=== PATIENT | male | born 1945 | race Caucasian/White ===

== ENCOUNTER 2017-10-10 15:56 | Emergency (ER) | payer MEDICARE, MEDICAID ==
[~2017-10-10] VITALS: Ht 185.4 cm; Wt 136.0 kg
[~2017-10-10 15:56] MED LIST: AMLO10 PO; ASPI-99 PO; ATOR40TA49 PO; CLIN150 PO; EPIP0.3I IM; FENT25DI TD; FISH1000 PO; ISOS10TA PO; LANTUS2P SC; LEVEMIR SC; LISI10TA PO; METF1000 PO; MONT10TA2 PO; OMEP20TA PO; POTA-267 OR; PREG100 PO; ROPI5TAB PO; SINE25100 PO; SPIRCAP INH; VENTAER INH; [UNRECOGNIZED DRUG - CODE] PO
[2017-10-10 16:02] VITALS: BP 129/69; PULSE 73; RESP 16; TEMP 97.4; O2SAT 97
[2017-10-10] MEDS ORDERED: FURO1TAB60 PO (16:25)
[2017-10-10] MEDS ORDERED: PREG300 PO (16:25)
[2017-10-10] MEDS ORDERED: CARB25TA16 PO (16:25)
[2017-10-10] MEDS ORDERED: NYST100084 TOPICAL (16:25)
[2017-10-10] MEDS ORDERED: XARE20TA PO (16:25)
[2017-10-10] MEDS ORDERED: CARB25TA12 PO (16:25)
[2017-10-10] MEDS ORDERED: HYDR-3583 PO (16:25)
[2017-10-10] MEDS ORDERED: ROPI2TAB PO (16:25)
[2017-10-10] MEDS ORDERED: ATOR40TA16 PO (16:25)
[2017-10-10] MEDS ORDERED: DIPH25CA PO (16:25)
[2017-10-10] MEDS ORDERED: GABA400C5 PO (16:25)
[2017-10-10] MEDS ORDERED: CARB10TA2 PO (16:25)
[2017-10-10] MEDS ORDERED: TIOT1AER INH (16:25)
[2017-10-10] MEDS ORDERED: POTA10TA15 PO (16:25)
[2017-10-10] MEDS ORDERED: OMEG100046 PO (16:25)
[2017-10-10] MEDS ORDERED: OMEP40CA2 PO (16:25)
[2017-10-10] MEDS ORDERED: LISI20TA3 PO (16:25)
[2017-10-10] MEDS ORDERED: FLAX10002 PO (16:25)
[2017-10-10] MEDS ORDERED: VITA500T83 PO (16:25)
--- NOTE | 2017-10-10 16:36 | PD ---
HPI Chief Complaint: Wound/Suture/Staple Re-Check Time Seen by Provider: 16:24 Travel History International Travel<30 days: No Contact w/Intl Traveler<30days: No Traveled to known affect area: No History of Present Illness HPI 72-year-old male with bilateral axillary cyst removals by Dr. Del Valle at [facility] on 10/04/17, on Xarelto, here for evaluation of pain at the incision site on his right axilla with bleeding. The patient reports that he rates his arm too high today, causing pain and bleeding. He believes he may have ripped one of the sutures out. He was seen by the surgeons nurse practitioner yesterday and was started on Bactrim. He denies fevers. Pain is moderate, constant, worse with movements. PFSH Past Medical History Asthma: Yes High Cholesterol: Yes COPD: Yes Coronary Artery Disease: Yes Diabetes: Yes Patient Takes Glucophage: No Diminished Hearing: No Gastrointestinal Disorders: Yes (GASTROPERISIS) GERD: Yes Hypertension: Yes Musculoskeletal: Yes (CHRONIC LEG PAIN) Pneumonia: Yes Past Surgical History Appendectomy: Yes Cholecystectomy: Yes Other Surgery: Yes (HERNIA, CYSTS REMOVED BILATERAL AXILLA) Social History Alcohol Use: No Tobacco Use: Yes Substance Use: No Allergies-Medications (Allergen,Severity, Reaction): Coded Allergies: bee venom protein (honey bee) (Unverified Allergy, Severe, Anaphylaxis, 10/10/17) doxycycline (Unverified Allergy, Severe, 10/10/17) erythromycin base (Unverified Allergy, Severe, HIVES, 10/10/17) levofloxacin (Unverified Allergy, Severe, Itching, 10/10/17) penicillin G (Unverified Allergy, Severe, Anaphylaxis, 10/10/17) pregabalin (Unverified Allergy, Unknown, Anaphylaxis, 10/10/17) *MDRO Multi-Drug Resistant Organism (Unverified Adverse Reaction, Unknown , 10/10/17) MRSA - 06/27/14 (wound) Uncoded Allergies: DOXY (Allergy, Severe, Itching, 01/17/12) Reported Meds & Prescriptions Reported Meds & Active Scripts Active Reported Diphenhydramine (Diphenhydramine HCl) 25 Mg Cap 25 Mg PO Q8HR PRN Lyrica (Pregabalin) 300 Mg Cap 300 Mg PO TID Hydrocodone-Acetaminophen 10-325 mg Tab 1 Tab PO Q6H PRN Atorvastatin (Atorvastatin Calcium) 40 Mg Tab 40 Mg PO HS Vitamin C ER (Ascorbic Acid) 500 Mg Jodee 500 Mg PO DAILY Fish Oil 1,000 mg Softgel ([place]-3/Dha/Epa/Fish Oil) 1,000 Mg (120 Mg-180 Mg) Capsule 1 Tab PO DAILY Omeprazole 40 Mg Cap 40 Mg PO BID Lasix (Furosemide) 40 Mg Tab 40 Mg PO BID Lisinopril-Hctz 20-25 Mg Tab 1 Tab PO DAILY Xarelto (Rivaroxaban) 20 Mg Tab 20 Mg PO DAILY Flax Seed Oil 1000 mg (Flaxseed (Linseed)) 1,000 Mg Cap 1 Cap PO DAILY Ropinirole 2 Mg Tab 3 Tab PO HS Carbidopa-Levodopa 10-100 Mg Tab 1 Tab PO Q8HR Carbidopa-Levodopa ER 25-100 Mg Tab 1 Tab PO DAILY Carbidopa-Levodopa 25-250 Mg Tab 1 Tab PO Q8HR Potassium Chloride Microencaps 10 Meq Tab 10 Meq PO QID Gabapentin 400 Mg Cap 400 Cap PO QID Stiolto Respimat Inh (Tiotropium-Olodaterol Inh) 2.5-2.5 Mcg/Act Aero 2 Puff INH BID Nystatin Topical 100,000 unit/gm Oint 1 Applic TOPICAL Q12HR Review of Systems Except as stated in HPI: all other systems reviewed are Neg Physical Exam Narrative GENERAL: Well-developed, well-nourished, comfortable, no apparent distress. SKIN: Right axillary surgical incision with [address] with no active bleeding, no purulence, mild surrounding ecchymosis and erythema, no crepitus. Left axillary surgical incision with [address] with a small amount of purulence, no surrounding warmth or erythema, no induration, no crepitus. CARDIOVASCULAR: Regular rate and rhythm. RESPIRATORY: No accessory muscle use. NEUROLOGICAL: Awake and alert. No obvious cranial nerve deficits. Motor grossly within normal limits. Normal speech. PSYCHIATRIC: Appropriate mood and affect; insight and judgment normal. Data Data Last Documented VS Vital Signs Date Time Temp Pulse Resp B/P (MAP) Pulse Ox O2 Delivery O2 Flow Rate FiO2 10/10/17 16:02 97.4 73 16 129/69 (89) 97 MDM Medical Decision Making Medical Screen Exam Complete: Yes Emergency Medical Condition: Yes Differential Diagnosis Wound dehiscence, surgical site infection Narrative Course This is a 72-year-old male who is concerned about pain and bleeding to her right axillary surgical incision from a cyst removal that was performed on . The surgical wound shows 3 sutures that are in place with no active bleeding, doubt surrounding ecchymosis, no purulence, or induration, or fluctuance. The left axillary surgical wound shows [address] with a small amount of purulent drainage, no surrounding warmth or erythema, no fluctuance or induration. The patient was supposedly started on Bactrim yesterday by his general surgeons practitioner because of the way this one month. The patient denies fevers. He is already on pain management. He is stable for discharge home with outpatient follow-up with his general surgeon this week. He was informed on when to return to the emergency department. He verbalizes understanding and agreement with plan. Diagnosis Primary Impression: Disruption of external surgical wound Qualified Codes: T81.31XA - Disruption of external operation (surgical) wound , not elsewhere classified, initial encounter Referrals: General Surgeon 3 days Additional Instructions: Follow-up with your general surgeon this week. Take antibiotic as prescribed. Return to the emergency department for worsening symptoms or any other concerns. Disposition: 01 DISCHARGE HOME Condition: Stable Jose Nguyen MD Oct 10, 2017 16:36
[2017-10-10] MEDS ORDERED: oxyCODONE/ACETAMINOPHEN 10 MG/325 MG TAB PO ONE (16:45)
== END 2017-10-10 17:00 | disposition home or self-care (01) ==
LOC: PHED 15:56
DX: T81.31XA Disruption of external operation (surgical) wound, not elsewhere classified, initial encounter (principal); J45.909 Unspecified asthma, uncomplicated; E78.00 Pure hypercholesterolemia, unspecified; J44.9 Chronic obstructive pulmonary disease, unspecified; I25.10 Atherosclerotic heart disease of native coronary artery without angina pectoris; E11.9 Type 2 diabetes mellitus without complications; Z72.0 Tobacco use
CPT/HCPCS: 99283

== ENCOUNTER 2018-01-26 10:58 | Inpatient (IN) | payer MEDICARE, MEDICAID ==
[~2018-01-26] VITALS: Ht 172.7 cm; Wt 148.4 kg
[2018-01-26] VITALS (12 sets, daily range): BP systolic 67–104; BP diastolic 34–62; PULSE 63–97; RESP 16–23; TEMP 97.5–98.1; O2SAT 94–100
[~2018-01-26 10:58] MED LIST changes: -AMLO10 PO; -ASPI-99 PO; +ATOR40TA16 PO; -ATOR40TA49 PO; +CARB10TA2 PO; +CARB25TA12 PO; +CARB25TA16 PO; -CLIN150 PO; +DIPH25CA PO; -EPIP0.3I IM; -FENT25DI TD; -FISH1000 PO; +FLAX10002 PO; +FURO1TAB60 PO; +GABA400C5 PO; +HYDR-3583 PO; -ISOS10TA PO; -LANTUS2P SC; -LEVEMIR SC; -LISI10TA PO; +LISI20TA3 PO; -METF1000 PO; -MONT10TA2 PO; +NYST100084 TOPICAL; +OMEG100046 PO; -OMEP20TA PO; +OMEP40CA2 PO; -POTA-267 OR; +POTA10TA15 PO; -PREG100 PO; +PREG300 PO; +ROPI2TAB PO; -ROPI5TAB PO; -SINE25100 PO; -SPIRCAP INH; +TIOT1AER INH; -VENTAER INH; +VITA500T83 PO; +XARE20TA PO; -[UNRECOGNIZED DRUG - CODE] PO
--- NOTE | 2018-01-26 11:11 | PD ---
HPI Chief Complaint: Chest Pain Time Seen by Provider: 11:03 Travel History International Travel<30 days: No Contact w/Intl Traveler<30days: No Traveled to known affect area: No History of Present Illness HPI patient is a 72 year old male with a history of diabetes, HTN, HLD, presents to the ER with sudden onset middle abdominal pain radiating to his back for the past 30-45 mins. States he was sitting in his truck when it started. Noted hypotensive by ems and a pulsatile mass was felt by EMS as well. Patient states he felt fine before this. No fever, cough, congestion, or vomiting. States pain is severe. PFSH Past Medical History Asthma: Yes High Cholesterol: Yes COPD: Yes Coronary Artery Disease: Yes Diabetes: Yes Diminished Hearing: No Gastrointestinal Disorders: Yes (GASTROPERISIS) GERD: Yes Hypertension: Yes Musculoskeletal: Yes (CHRONIC LEG PAIN) Pneumonia: Yes Past Surgical History Appendectomy: Yes Cholecystectomy: Yes Other Surgery: Yes (HERNIA, CYSTS REMOVED BILATERAL AXILLA) Social History Alcohol Use: No Tobacco Use: Yes Substance Use: No Allergies-Medications (Allergen,Severity, Reaction): Coded Allergies: bee venom protein (honey bee) (Unverified Allergy, Severe, Anaphylaxis, 10/10/17) doxycycline (Unverified Allergy, Severe, 10/10/17) erythromycin base (Unverified Allergy, Severe, HIVES, 10/10/17) levofloxacin (Unverified Allergy, Severe, Itching, 10/10/17) penicillin G (Unverified Allergy, Severe, Anaphylaxis, 10/10/17) pregabalin (Unverified Allergy, Unknown, Anaphylaxis, 10/10/17) *MDRO Multi-Drug Resistant Organism (Unverified Adverse Reaction, Unknown , 10/10/17) MRSA - 06/27/14 (wound) Uncoded Allergies: DOXY (Allergy, Severe, Itching, 01/17/12) Reported Meds & Prescriptions Reported Meds & Active Scripts Active Reported Nitrostat SL (Nitroglycerin) 0.4 Mg Subl 0.4 Mg SL DIRECTED PRN 1 tablet under the tongue as needed for chest pain. Repeat every 5 minutes for a total of 3 DOSES or call 911 if NO relief. Nitro-Dur Patch 24 HR (Nitroglycerin) 0.2 Mg/Hr Patch 0.2 Mg T-DERMAL DAILY Ropinirole 3 Mg Tab 3 Mg PO HS Potassium Chloride ER (Potassium Chloride) 20 Meq Tab 20 Meq PO BID Diphenhydramine (Diphenhydramine HCl) 25 Mg Cap 25 Mg PO Q8HR PRN Lyrica (Pregabalin) 300 Mg Cap 300 Mg PO BID Hydrocodone-Acetaminophen 10-325 mg Tab 1 Tab PO Q6H PRN Atorvastatin (Atorvastatin Calcium) 40 Mg Tab 40 Mg PO HS Vitamin C ER (Ascorbic Acid) 500 Mg Jodee 500 Mg PO DAILY Fish Oil 1,000 mg Softgel ([place]-3/Dha/Epa/Fish Oil) 1,000 Mg (120 Mg-180 Mg) Capsule 1,000 Mg PO DAILY Omeprazole 40 Mg Cap 40 Mg PO BID Lasix (Furosemide) 40 Mg Tab 40 Mg PO BID Lisinopril-Hctz 20-25 Mg Tab 1 Tab PO DAILY Xarelto (Rivaroxaban) 20 Mg Tab 20 Mg PO DAILY Flax Seed Oil 1000 mg (Flaxseed (Linseed)) 1,000 Mg Cap 1 Cap PO DAILY Carbidopa-Levodopa 10-100 Mg Tab 2 Tab PO Q8HR Gabapentin 400 Mg Cap 400 Mg PO QID Stiolto Respimat Inh (Tiotropium-Olodaterol Inh) 2.5-2.5 Mcg/Act Aero 2 Puff INH BID Nystatin Topical 100,000 unit/gm Oint 1 Applic TOPICAL Q12HR Apply to arms Review of Systems Except as stated in HPI: all other systems reviewed are Neg Physical Exam Narrative GENERAL: Well-developed well-nourished obese, diaphoretic. SKIN: Focused skin assessment warm/dry. HEAD: Atraumatic. Normocephalic. EYES: Pupils equal and round. No scleral icterus. No injection or drainage. ENT: No nasal bleeding or discharge. Mucous membranes pink and moist. NECK: Trachea midline. No JVD. CARDIOVASCULAR: Regular rate and rhythm. No murmur appreciated. 2+ bilaterally equal pulses in all four extremities. RESPIRATORY: No accessory muscle use. Clear to auscultation. Breath sounds equal bilaterally. GASTROINTESTINAL: Abdomen soft, non-tender, obese, no visualized blood on quick bedside ultrasound. Hepatic and splenic margins not palpable. MUSCULOSKELETAL: No obvious deformities. No clubbing. No cyanosis. No edema. NEUROLOGICAL: Awake and alert. No obvious cranial nerve deficits. Motor grossly within normal limits. Normal speech. PSYCHIATRIC: Appropriate mood and affect; insight and judgment normal. Data Data Last Documented VS Vital Signs Date Time Temp Pulse Resp B/P (MAP) Pulse Ox O2 Delivery O2 Flow Rate FiO2 01/26/18 15:26 68 19 104/52 (69) 100 Nasal Cannula 2.00 01/26/18 11:00 97.5 Orders Orders Electrocardiogram (01/26/18 11:03) Ckmb (Isoenzyme) Profile (01/26/18 11:03) Complete Blood Count With Diff (01/26/18 11:03) Comprehensive Metabolic Panel (01/26/18 11:03) Magnesium (Mg) (01/26/18 11:03) Prothrombin Time / Inr (Pt) (01/26/18 11:03) Act Partial Throm Time (Ptt) (01/26/18 11:03) Troponin I (01/26/18 11:03) Lipase (01/26/18 11:03) Chest, Single Ap (01/26/18 11:03) Ecg Monitoring (01/26/18 11:03) Iv Access Insert/Monitor (01/26/18 11:03) Oximetry (01/26/18 11:03) Oxygen Administration (01/26/18 11:03) Aspirin Chew (Aspirin Chew) (01/26/18 11:15) Sodium Chloride 0.9% Flush (Ns Flush) (01/26/18 11:15) Morphine Inj (Morphine Inj) (01/26/18 11:15) Ondansetron Odt (Zofran Odt) (01/26/18 11:15) Sodium Chlor 0.9% 1000 Ml Inj (Ns 1000 M (01/26/18 11:15) Type And Screen (01/26/18 11:03) Lactic Acid (01/26/18 11:03) I-Stat Profile (01/26/18 11:04) Cta Thor Abd Aorta W Iv C W3d (01/26/18 11:19) Iodixanol 320 Inj (Rad Ct) (Visipaque 32 (01/26/18 11:55) Blood Culture (01/26/18 12:40) Electrocardiogram (01/26/18 ) Echo 2d Comp With Doppler (01/26/18 ) Imipenem/Cilastatin Inj (Primaxin Inj) (01/26/18 14:45) Admit Order (Ed Use Only) (01/26/18 ) Labs Laboratory Tests Test 01/26/18 11:11 01/26/18 11:23 White Blood Count 13.6 TH/MM3 Red Blood Count 4.75 MIL/MM3 Hemoglobin 11.9 GM/DL Bedside Hemoglobin 12.6 G/DL Hematocrit 37.1 % Bedside Hematocrit 37.0 % Mean Corpuscular Volume 78.1 FL Mean Corpuscular Hemoglobin 25.0 PG Mean Corpuscular Hemoglobin Concent 32.0 % Red Cell Distribution Width 18.3 % Platelet Count 306 TH/MM3 Mean Platelet Volume 9.7 FL Neutrophils (%) (Auto) 72.5 % Lymphocytes (%) (Auto) 18.6 % Monocytes (%) (Auto) 7.3 % Eosinophils (%) (Auto) 1.4 % Basophils (%) (Auto) 0.2 % Neutrophils # (Auto) 9.8 TH/MM3 Lymphocytes # (Auto) 2.5 TH/MM3 Monocytes # (Auto) 1.0 TH/MM3 Eosinophils # (Auto) 0.2 TH/MM3 Basophils # (Auto) 0.0 TH/MM3 CBC Comment AUTO DIFF Differential Total Cells Counted 100 Neutrophils % (Manual) 77 % Band Neutrophils % 2 % Lymphocytes % 12 % Monocytes % 5 % Eosinophils % 2 % Neutrophils # (Manual) 11.0 TH/MM3 Myelocytes 2 % Differential Comment FINAL DIFF MANUAL Platelet Estimate NORMAL Platelet Morphology Comment NORMAL Ovalocytes 1+ Prothrombin Time 12.1 SEC Prothromb Time International Ratio 1.2 RATIO Activated Partial Thromboplast Time 26.9 SEC Bedside Sodium 135 MMOL/L Blood Urea Nitrogen 50 MG/DL Creatinine 2.70 MG/DL Random Glucose 173 MG/DL Total Protein 6.7 GM/DL Albumin 3.4 GM/DL Calcium Level 8.6 MG/DL Magnesium Level 1.7 MG/DL Alkaline Phosphatase 93 U/L Aspartate Amino Transf (AST/SGOT) 15 U/L Alanine Aminotransferase (ALT/SGPT) 7 U/L Total Bilirubin 0.6 MG/DL Sodium Level 137 MEQ/L Potassium Level 4.3 MEQ/L Chloride Level 100 MEQ/L Carbon Dioxide Level 20.6 MEQ/L Bedside Potassium 4.3 MMOL/L Bedside Chloride 98 MMOL/L Anion Gap 16 MEQ/L Bedside Blood Urea Nitrogen 49 MG/DL Bedside Creatinine 2.7 MG/DL Estimat Glomerular Filtration Rate 23 ML/MIN Bedside Glucose 185 MG/DL Total Creatine Kinase 89 U/L Troponin I LESS THAN 0.02 NG/ML Lipase 302 U/L Lactic Acid Level 2.1 mmol/L MDM Medical Decision Making Medical Screen Exam Complete: Yes Emergency Medical Condition: Yes Differential Diagnosis AAA, ruptured AAA, abdominal pain, chest pain, acs, ami, pneumonia. Narrative Course Patient with hypotension, obesity, abdominal pain radiating to back. Pulsatile mass felt in the field. Bedside US does not show any free blood in the abdomen but is highly limited by body habitus. Patient with some epigastric and chest discomfort. AAA is high on differential. Patient counseled in witness of nursing about risk of contrast, recommended CTA aorta prior to Cr result. Discussed with him that with diabetes this will put him at risk of kidney failure and dialysis but i think the risks are justified. He verbally agreed to contrast. Last 24 hours Impressions Aorta CTA 01/26/18 1119 Signed Impressions: CONCLUSION: 1. No aortic dissection or aneurysm seen. 2. Right renal cyst. 3. Status post cholecystectomy. 4. Focal nodularity in the left lung likely infectious/inflammatory. Chest X-Ray 01/26/18 1103 Signed Impressions: CONCLUSION: Cardiomegaly with increase in pulmonary vascularity. Bedside stat echo discussed with Dr. Cohen, wet read is no significant abnormality to explain hypotension. Fluid resucitaiton with 2L NS improving BP. Pneumonia noted. Techincally septic. Multiple allergies, imipenim given. Discussed with Dr. Jules, requests [facility] consult for possible floor admission. This i think is appropriate at this time. Discussed with Dr. Galo who agrees for admission. Critical Care Narrative Aggregate critical care time was 35 minutes. Time to perform other separately billable procedures was not included in the critical care time. My time did not include minutes spent treating any other patients simultaneously or on activities that did not directly contribute to the patient's treatment. The services I provided to this patient were to treat and/or prevent clinically significant deterioration that could result in: , disability, organ failure I provided critical care services requiring my management, as noted below: Chart data review, documentation time, medication orders and management, vital sign assessments/reviewing monitor data, ordering and reviewing lab tests, ordering and interpreting/reviewing x-rays and diagnostic studies, care of the patient and discussion of the patient with the admitting physicians. Diagnosis Primary Impression: Transient hypotension Additional Impressions: Sepsis Pneumonia Abdominal pain Admitting Information Admitting Physician Requests: Admit Condition: Arsenio Paulino MD Jan 26, 2018 11:11
[2018-01-26] MEDS ORDERED: SODIUM CHLOR 0.9% 1000 ML INJ 1,000 ML IV ONE (11:15)
[2018-01-26] MEDS ORDERED: ASPIRIN 81 MG CHEW TAB PO ONE (11:15)
[2018-01-26] MEDS ORDERED: ONDANSETRON ODT 4 MG TAB PO ONE (11:15)
[2018-01-26] MEDS ORDERED: MORPHINE SULFATE 4 MG/ML INJ IV PUSH ONE (11:15)
[2018-01-26] MEDS ORDERED: SODIUM CHLORIDE 0.9% FLUSH 10 ML FLUSH IVF PRN (11:15)
[2018-01-26 11:26] LABS: AUTOMATED NEUTROPHIL # 9.8 TH/MM3 (1.8-7.7); BASOPHIL % 0.2 % (0.0-2.0); EOSINOPHIL # 0.2 TH/MM3 (0-0.4); EOSINOPHIL % 1.4 % (0.0-4.0); HEMATOCRIT 37.1 % (39.0-51.0); HEMOGLOBIN 11.9 GM/DL (13.0-17.0); LYMPH % 18.6 % (9.0-44.0); LYMPHOCYTE # 2.5 TH/MM3 (1.0-4.8); MEAN CELL VOLUME 78.1 FL (80.0-100.0); MEAN PLATELET VOLUME 9.7 FL (7.0-11.0); MONO % 7.3 % (0.0-8.0); NEUT % 72.5 % (16.0-70.0); PLATELET COUNT 306 TH/MM3 (150-450); RED BLOOD COUNT 4.75 MIL/MM3 (4.50-5.90); RED CELL DISTRIBUTION WIDTH 18.3 % (11.6-17.2); WHITE BLOOD COUNT 13.6 TH/MM3 (4.0-11.0)
[2018-01-26 11:37] LABS: INTERNATIONAL NORMALIZED RATIO 1.2 RATIO; PROTHROMBIN TIME - PATIENT 12.1 SEC (9.8-11.6)
[2018-01-26 11:43] LABS: ALBUMIN 3.4 GM/DL (3.4-5.0); ALT (GPT) 7 U/L (12-78); AST (GOT) 15 U/L (15-37); BICARBONATE 20.6 MEQ/L (21.0-32.0); BLOOD UREA NITROGEN 50 MG/DL (7-18); CALCIUM 8.6 MG/DL (8.5-10.1); CHLORIDE 100 MEQ/L (98-107); GLOMERULAR FILTRATION RATE 23 ML/MIN (>89); GLUCOSE,RANDOM 173 MG/DL (74-106); MAGNESIUM 1.7 MG/DL (1.5-2.5); SODIUM (NA) 137 MEQ/L (136-145)
[2018-01-26 11:47] LABS: ALKALINE PHOSPHATASE 93 U/L (45-117); TOTAL BILIRUBIN ADULT 0.6 MG/DL (0.2-1.0); TOTAL PROTEIN 6.7 GM/DL (6.4-8.2); TROPONIN I LESS THAN 0.02 NG/ML (0.02-0.05)
[2018-01-26] MEDS ORDERED: IODIXANOL 320 MG/ML 10 ML VIAL (for Rad CT) IVCONTRAST ONE (11:55)
--- NOTE | 2018-01-26 12:04 | RADRPT ---
EXAM DATE: 01/26/2018 11:50 AM EDT AGE/SEX: 72 years / Male INDICATIONS: Chest pain and shortness of breath. CLINICAL DATA: This is the patient's initial encounter. Patient reports that signs and symptoms have been present for 3 days and indicates a pain score of 7/10. MEDICAL/SURGICAL HISTORY: Congestive heart failure. None. COMPARISON: [facility] – [place], CHEST SINGLE AP, 03/15/2012. . FINDINGS: A single AP view of the chest demonstrates the lungs to be symmetrically aerated without evidence of mass, infiltrate or effusion. Moderate cardiomegaly. Increase in pulmonary vascularity . The cardiome diastinal contours are unremarkable. Osseous structures are intact. CONCLUSION: Cardiomegaly with increase in pulmonary vascularity. Electronically signed by: Amarjit Ruff MD 01/26/2018 12:03 PM EDT
--- NOTE | 2018-01-26 12:33 | RADRPT ---
EXAM DATE: 01/26/2018 12:25 PM EDT AGE/SEX: 72 years / Male INDICATIONS: Sudden onset abdominal pain today. Chest pain. CLINICAL DATA: This is the patient's initial encounter. Patient reports that signs and symptoms have been present for 1 day and indicates a pain score of 9/10. MEDICAL/SURGICAL HISTORY: Chronic obstructive pulmonary disease. Hypertension. Congestive heart f ailure. Appendectomy. Cholecystectomy. RADIATION DOSE: 17.01 CTDI (mGy) ; Patient body habitus COMPARISON: No prior exams available for comparison. TECHNIQUE: Volumetric scanning was performed using a multi-row detector CT scanner during bolus infu aleshia of 50 ml Visipaque 320 (iodixanol) nonionic water-soluble contrast as a single exam dose. The data was post processed with a variety of visualization algorithms including full volume maximum inte nsity projection, multi-planar sliding thin slab reformation, curved planar reformation, and surface rendering techniques. Using automated exposure control and adjustment of the mA and/or kV according to patient size, radiation dose was kept as low as reasonably achievable to obtain optimal diagnostic quality images. DICOM format image data is available electronically for review and comparison. FINDINGS: This was deemed a medical emergency by ER physician. Patient only given a small amount of c ontrast given elevated creatinine.. Lungs: There is no consolidation or pneumothorax. There are some clustered nodules in the lingula li is[place] infectious/inflammatory. Largest nodule measures 4 mm. No concerning pulmonary nodule is visuali zed. No pleural fluid is present. Mediastinum: No abnormally enlarged lymph nodes by CT criteria. No axillary or hilar abnormalities a re identified. Calcified mediastinal and hilar lymphadenopathy. Abdomen: The liver and spleen are free of focal defects. The gallbladder and pancreas demonstrate no abnormality. The adrenal glands are normal. The kidneys demonstrate no evidence of solid renal mass or hydronephrosis. No free fluid or abdominal masses are identified. No para-aortic adenopathy is see n. Status post cholecystectomy. Right renal cyst. Pelvis: No evidence of free fluid or pelvic mass. No abnormally enlarged inguinal or retroperitoneal lymph nodes are present. The bladder is unremarkable. There is sclerosis of S1. Thoracic Aorta: The thoracic aortic root is normal with normal branching of the great vessels. Ther e is no evidence of aneurysm or dissection. Abdominal Aorta: The aorta is normal in caliber without aneurysm or dissection. The renal arteries are patent bilaterally. The proximal celiac and superior mesenteric arteries are patent and normal i n diameter. Pelvic Vessels: The internal iliac and external iliac vessels are patent without aneurysm or stenosi s. CONCLUSION: 1. No aortic dissection or aneurysm seen. 2. Right renal cyst. 3. Status post cholecystectomy. 4. Focal nodularity in the left lung likely infectious/inflammatory. Electronically signed by: Amarjit Ruff MD 01/26/2018 12:31 PM EDT
[2018-01-26 13:07] LABS: BANDS 2 % (0-6); LYMPHOCYTES 12 % (9-44); MONOCYTES 5 % (0-8); MYELOCYTES 2 % (0-0); OVALOCYTES 1+ (NORMAL); POLYS (SEG NEUTROPHILS) 77 % (16-70)
--- NOTE | 2018-01-26 13:43 | ECHRPT ---
Indication: CONCLUSIONS The left ventricular systolic function is normal with an estimated ejection fraction in the range of 60-65%. Normal left ventricular size. Wall thickness is measured at the upper limits of normal. No regional wall motion abnormalities are present. The tricuspid valve is not well visualized. There is trace tricuspid valve regurgitation. The estimated pulmonary arterial pressure is 29.9 mmHg. BP: / HR: Rhythm: MEASUREMENTS (Male / Female) Normal Values Technical Quality:Fair 2D ECHO LV Diastolic Diameter PLAX 4.1 cm 4.2 - 5.9 / 3.9 - 5.3 cm LV Systolic Diameter PLAX 3.0 cm IVS Diastolic Thickness 1.2 cm 0.6 - 1.0 / 0.6 - 0.9 cm LVPW Diastolic Thickness 1.2 cm 0.6 - 1.0 / 0.6 - 0.9 cm LV Relative Wall Thickness 0.6 LVOT Diameter 2.2 cm M-MODE Aortic Root Diameter MM 2.5 cm DOPPLER AV Peak Velocity 167.0 cm/s AV Peak Gradient 11.2 mmHg LVOT Peak Velocity 134.0 cm/s LVOT Peak Gradient 7.2 mmHg AV Area Cont Eq pk 3.1 cm MV Area PHT 2.2 cm Mitral E Point Velocity 84.2 cm/s Mitral A Point Velocity 98.7 cm/s Mitral E to A Ratio 0.9 LV E' Lateral Velocity 5.6 cm/s Mitral E to LV E' Lateral Ratio 15.1 LV E' Septal Velocity 6.9 cm/s Mitral E to LV E' Septal Ratio 12.2 TR Peak Velocity 223.0 cm/s TR Peak Gradient 20.0 mmHg Right Atrial Pressure 10.0 mmHg Pulmonary Artery Systolic Pressu 29.9 mmHg Right Ventricular Systolic Press 29.9 mmHg PV Peak Velocity 115.0 cm/s PV Peak Gradient 5.3 mmHg FINDINGS LEFT VENTRICLE Doppler parameters are consistent with impaired left ventricular relaxtion (grade 1 diastolic dysfun ction). The left ventricular systolic function is normal with an estimated ejection fraction in the range of 60-65%. Normal left ventricular size. Wall thickness is measured at the upper limits of normal. No regional wall motion abnormalities are present. RIGHT VENTRICLE Normal right ventricular size and systolic function. LEFT ATRIUM The left atrial size is normal. RIGHT ATRIUM The right atrial size is normal. ATRIAL SEPTUM Normal atrial septal thickness without atrial level shunting by limited color doppler interrogation. AORTA The aortic root and proximal ascending aorta are normal in size on limited imaging. MITRAL VALVE Structurally normal mitral valve. No mitral valve stenosis or regurgitation. AORTIC VALVE Trileaflet aortic valve. No aortic valve stenosis or regurgitation. TRICUSPID VALVE The tricuspid valve is not well visualized. There is trace tricuspid valve regurgitation. The estimated pulmonary arterial pressure is 29.9 mmHg. PULMONARY VALVE No pulmonary valve regurgitation or stenosis. VESSELS The inferior vena cava is normal in size. PERICARDIUM No pericardial effusion. Nicholas Cohen MD (Electronically Signed) Final Date:26 January 2018 13:43
[2018-01-26] MEDS ORDERED: IMIPENEM/CILASTATIN INJ 250 MG VIAL IV ONE (14:45)
[2018-01-26] MEDS ORDERED: GLUCAGON 1 MG/ML VIAL OTHER PRN (15:45)
[2018-01-26] MEDS ORDERED: NITROGLYCERIN 0.4 MG SL 25 TABS/BTL SL PRN (15:45)
[2018-01-26] MEDS ORDERED: SODIUM CHLORIDE 0.9% FLUSH 10 ML FLUSH IV FLUSH PRN (15:45)
[2018-01-26] MEDS ORDERED: DEXTROSE 50% IN WATER 50 ML VIAL(D50) IV PUSH PRN (15:45)
[2018-01-26] MEDS ORDERED: NALOXONE HCL 0.4 MG/ML AMP IV PUSH PRN (16:00)
[2018-01-26] MEDS ORDERED: ACETAMINOPHEN 325 MG TAB PO PRN ×2 (16:00)
[2018-01-26] MEDS ORDERED: ONDANSETRON ODT 4 MG TAB PO PRN (16:00)
[2018-01-26] MEDS ORDERED: RESP: ALBUTEROL 2.5 MG/3 ML NEB (PRN) NEB (16:00)
[2018-01-26] MEDS ORDERED: SENNOSIDES 8.6 MG TAB PO PRN (16:00)
[2018-01-26] MEDS ORDERED: LACTULOSE SYRUP 20 GM/30 ML CUP PO PRN (16:00)
[2018-01-26] MEDS ORDERED: BISACODYL 10 MG SUPP RECTAL PRN (16:00)
[2018-01-26] MEDS ORDERED: IMIPENEM/CILASTAT 500 MG in NS MINIBAG 100 ML IV ONE (16:45)
--- NOTE | 2018-01-26 16:52 | HHI.HP ---
HPI Service [facility] Primary Care Physician Александр Campuzano M.D. Admission Diagnosis PNA, Sepsis, Chest and Abdominal pain. Diagnoses: Chief Complaint: Abdominal pain Travel History International Travel<30 Days: No Contact w/Intl Traveler <30 Da: No Traveled to Known Affected Are: No Sepsis Criteria SIRS Criteria (2 or more): RR > 20 or PaCO2 < 32, WBC > 44383, < 4000 or > 10 % bands Sepsis Criteria (SIRS+source): Infect source susp/known Severe Sepsis (+one): Lactate >2 Criteria Outcome: Meets severe sepsis criteria History of Present Illness This is a 72-year-old male emergency room complaining of acute severe lower abdominal pain radiating to his back 45 minutes prior to arrival. Was noted to be hypotensive with a pulsatile mass by EMS. Patient underwent stat aortic CTA which showed no aortic dissection but with a focal nodularity in the left lung suggestive of inflammatory or infectious etiology. He also complained of shortness of breath and left-sided chest pain like muscle spasm for 1 hour . He has been having dry cough. No fever or chills. Patient has severe sepsis with elevated lactic acid and received imipenem. He also has acute kidney injury with acidosis and received 2 L fluid bolus. Denies UTI symptoms. Echocardiogram showed preserved ejection fraction. All other systems reviewed negative Review of Systems Except as stated in HPI: all other systems reviewed are Neg Past Family Social History Past Medical History Asthma, COPD, coronary artery disease, diabetes, hypertension, hyperlipidemia, chronic anticoagulation with Xarelto because of heart condition patient unable to recall specific diagnosis, PD, GERD, gastroparesis, chronic leg and back pain. Past Surgical History Appendectomy, cholecystectomy, hernia surgery, cyst removed from lateral axilla and neck Reported Medications Nursing to verify Reported Meds & Active Scripts Active Reported Diphenhydramine (Diphenhydramine HCl) 25 Mg Cap 25 Mg PO Q8HR PRN Lyrica (Pregabalin) 300 Mg Cap 300 Mg PO TID Hydrocodone-Acetaminophen 10-325 mg Tab 1 Tab PO Q6H PRN Atorvastatin (Atorvastatin Calcium) 40 Mg Tab 40 Mg PO HS Vitamin C ER (Ascorbic Acid) 500 Mg Jodee 500 Mg PO DAILY Fish Oil 1,000 mg Softgel (Matthews-3/Dha/Epa/Fish Oil) 1,000 Mg (120 Mg-180 Mg) Capsule 1 Tab PO DAILY Omeprazole 40 Mg Cap 40 Mg PO BID Lasix (Furosemide) 40 Mg Tab 40 Mg PO BID Lisinopril-Hctz 20-25 Mg Tab 1 Tab PO DAILY Xarelto (Rivaroxaban) 20 Mg Tab 20 Mg PO DAILY Flax Seed Oil 1000 mg (Flaxseed (Linseed)) 1,000 Mg Cap 1 Cap PO DAILY Ropinirole 2 Mg Tab 3 Tab PO HS Carbidopa-Levodopa 10-100 Mg Tab 1 Tab PO Q8HR Carbidopa-Levodopa ER 25-100 Mg Tab 1 Tab PO DAILY Carbidopa-Levodopa 25-250 Mg Tab 1 Tab PO Q8HR Potassium Chloride Microencaps 10 Meq Tab 10 Meq PO QID Gabapentin 400 Mg Cap 400 Cap PO QID Stiolto Respimat Inh (Tiotropium-Olodaterol Inh) 2.5-2.5 Mcg/Act Aero 2 Puff INH BID Nystatin Topical 100,000 unit/gm Oint 1 Applic TOPICAL Q12HR Allergies: Coded Allergies: bee venom protein (honey bee) (Unverified Allergy, Severe, Anaphylaxis, 10/10/17) doxycycline (Unverified Allergy, Severe, 10/10/17) erythromycin base (Unverified Allergy, Severe, HIVES, 10/10/17) levofloxacin (Unverified Allergy, Severe, Itching, 10/10/17) penicillin G (Unverified Allergy, Severe, Anaphylaxis, 10/10/17) pregabalin (Unverified Allergy, Unknown, Anaphylaxis, 10/10/17) *MDRO Multi-Drug Resistant Organism (Unverified Adverse Reaction, Unknown , 10/10/17) MRSA - 06/27/14 (wound) Uncoded Allergies: DOXY (Allergy, Severe, Itching, 01/17/12) Family History Heart disease Social History Occasional alcohol use. Ex-smoker. Lives with his Physical Exam Vital Signs Vital Signs Date Time Temp Pulse Resp B/P (MAP) Pulse Ox O2 Delivery O2 Flow Rate FiO2 01/26/18 15:26 68 19 104/52 (69) 100 Nasal Cannula 2.00 01/26/18 13:19 67 23 96/55 (69) 100 Nasal Cannula 2.00 01/26/18 12:17 74 21 86/56 (66) 99 Nasal Cannula 2.00 01/26/18 12:03 67 19 91/44 (60) 100 Nasal Cannula 2.00 01/26/18 11:48 63 18 85/48 (60) 99 Nasal Cannula 2.00 Manual Cuff/Auscultation 01/26/18 11:44 64 96 Nasal Cannula 90/62 (71) 01/26/18 11:26 68 19 94 Room Air 67/34 (45) 01/26/18 11:04 79 16 82/58 (66) Room Air 01/26/18 11:00 97.5 87 16 Physical Exam GENERAL: This is an obese, well-developed patient, in no apparent distress. He looks dehydrated SKIN: No rashes, ecchymoses or lesions. Cool and dry. HEAD: Atraumatic. Normocephalic. No temporal or scalp tenderness. EYES: Pupils equal round and reactive. Extraocular motions intact. No scleral icterus. No injection or drainage. ENT: Nose without bleeding, purulent drainage or septal hematoma. Throat without erythema, tonsillar hypertrophy or exudate. Uvula midline. Airway patent. NECK: Trachea midline. No JVD or lymphadenopathy. Supple, nontender, no meningeal signs. CARDIOVASCULAR: Regular rate and rhythm without murmurs, gallops, or rubs. RESPIRATORY: Clear to auscultation. Breath sounds equal bilaterally. No wheezes , rales, or rhonchi. GASTROINTESTINAL: Abdomen soft, non-tender, nondistended. Tinea corporis. No guarding. MUSCULOSKELETAL: Extremities without clubbing, cyanosis, or edema. No joint tenderness, effusion, or edema noted. No calf tenderness. Negative Homans sign bilaterally. NEUROLOGICAL: Awake and alert. Cranial nerves II through XII intact. Motor and sensory grossly within normal limits. Five out of 5 muscle strength in all muscle groups. Normal speech. Laboratory Laboratory Tests Test 01/26/18 11:11 01/26/18 11:23 White Blood Count 13.6 Red Blood Count 4.75 Hemoglobin 11.9 Bedside Hemoglobin 12.6 Hematocrit 37.1 Bedside Hematocrit 37.0 Mean Corpuscular Volume 78.1 Mean Corpuscular Hemoglobin 25.0 Mean Corpuscular Hemoglobin Concent 32.0 Red Cell Distribution Width 18.3 Platelet Count 306 Mean Platelet Volume 9.7 Neutrophils (%) (Auto) 72.5 Lymphocytes (%) (Auto) 18.6 Monocytes (%) (Auto) 7.3 Eosinophils (%) (Auto) 1.4 Basophils (%) (Auto) 0.2 Neutrophils # (Auto) 9.8 Lymphocytes # (Auto) 2.5 Monocytes # (Auto) 1.0 Eosinophils # (Auto) 0.2 Basophils # (Auto) 0.0 CBC Comment AUTO DIFF Differential Total Cells Counted 100 Neutrophils % (Manual) 77 Band Neutrophils % 2 Lymphocytes % 12 Monocytes % 5 Eosinophils % 2 Neutrophils # (Manual) 11.0 Myelocytes 2 Differential Comment FINAL DIFF MANUAL Platelet Estimate NORMAL Platelet Morphology Comment NORMAL Ovalocytes 1+ Prothrombin Time 12.1 Prothromb Time International Ratio 1.2 Activated Partial Thromboplast Time 26.9 Bedside Sodium 135 Blood Urea Nitrogen 50 Creatinine 2.70 Random Glucose 173 Total Protein 6.7 Albumin 3.4 Calcium Level 8.6 Magnesium Level 1.7 Alkaline Phosphatase 93 Aspartate Amino Transf (AST/SGOT) 15 Alanine Aminotransferase (ALT/SGPT) 7 Total Bilirubin 0.6 Sodium Level 137 Potassium Level 4.3 Chloride Level 100 Carbon Dioxide Level 20.6 Bedside Potassium 4.3 Bedside Chloride 98 Anion Gap 16 Bedside Blood Urea Nitrogen 49 Bedside Creatinine 2.7 Estimat Glomerular Filtration Rate 23 Bedside Glucose 185 Total Creatine Kinase 89 Troponin I LESS THAN 0.02 Lipase 302 Lactic Acid Level 2.1 Date/Time Source Procedure Growth Status 01/26/18 13:30 Blood Peripheral Aerobic Blood Culture Pending Received 01/26/18 13:30 Blood Peripheral Anaerobic Blood Culture Pending Received Result Diagram: 01/26/18 1111 01/26/18 1111 Imaging Last Impressions Aorta CTA 01/26/18 1119 Signed Impressions: CONCLUSION: 1. No aortic dissection or aneurysm seen. 2. Right renal cyst. 3. Status post cholecystectomy. 4. Focal nodularity in the left lung likely infectious/inflammatory. Chest X-Ray 01/26/18 1103 Signed Impressions: CONCLUSION: Cardiomegaly with increase in pulmonary vascularity. Caprini VTE Risk Assessment Caprini VTE Risk Assessment: Mod/High Risk (score >= 2) Caprini Risk Assessment Model Point Value = 1 Point Value = 2 Point Value = 3 Point Value = 5 Age 41-60 Minor surgery BMI > 25 kg/m2 Swollen legs Varicose veins or History of unexplained or recurrent spontaneous Oral contraceptives or hormone replacement Sepsis (< 1 month) Serious lung disease, including pneumonia (< 1 month) Abnormal pulmonary function Acute myocardial infarction Congestive heart failure (< 1 month) History of inflammatory bowel disease Medical patient at bed rest Age 61-74 Arthroscopic surgery Major open surgery (> 45 min) Laparoscopic surgery (> 45 min) Malignancy Confined to bed (> 72 hours) Immobilizing plaster cast Central venous access Age >= 75 History of VTE Family history of VTE Factor V Leiden Prothrombin [id number] Lupus anticoagulant Anticardiolipin antibodies Elevated serum homocysteine Heparin-induced thrombocytopenia Other congenital or acquired thrombophilia Stroke (< 1 month) Elective arthroplasty Hip, pelvis, or leg fracture Acute spinal cord injury (< 1 month) Prophylaxis Regimen Total Risk Factor Score Risk Level Prophylaxis Regimen 0-1 Low Early ambulation 2 Moderate Order ONE of the following: *Sequential Compression Device (SCD) *Heparin 5000 units SQ BID 3-4 Higher Order ONE of the following medications: *Heparin 5000 units SQ TID *Enoxaparin/Lovenox 40 mg SQ daily (WT < 150 kg, CrCl > 30 mL/min) *Enoxaparin/Lovenox 30 mg SQ daily (WT < 150 kg, CrCl > 10-29 mL/min) *Enoxaparin/Lovenox 30 mg SQ BID (WT < 150 kg, CrCl > 30 mL/min) AND/OR *Sequential Compression Device (SCD) 5 or more Highest Order ONE of the following medications: *Heparin 5000 units SQ TID (Preferred with Epidurals) *Enoxaparin/Lovenox 40 mg SQ daily (WT < 150 kg, CrCl > 30 mL/min) *Enoxaparin/Lovenox 30 mg SQ daily (WT < 150 kg, CrCl > 10-29 mL/min) *Enoxaparin/Lovenox 30 mg SQ BID (WT < 150 kg, CrCl > 30 mL/min) AND *Sequential Compression Device (SCD) Assessment and Plan Assessment and Plan This is a 72-year-old male emergency room complaining of acute severe lower abdominal pain radiating to his back 45 minutes prior to arrival. Was noted to be hypotensive with a pulsatile mass by EMS. Patient underwent stat aortic CTA which showed no aortic dissection but with a focal nodularity in the left lung suggestive of inflammatory or infectious etiology. He also complained of shortness of breath and left-sided chest pain like muscle spasm for 1 hour. He has been having dry cough. Abdominal pain. He ordered a CTA negative for dissection. Patient with no UTI symptoms. Reported to loose stools yesterday none today. Etiology to be determined. Obtain urinalysis. Pain management with Lortab and IV morphine Severe sepsis with left-sided pneumonia. He received imipenem. Will start aztreonam after obtaining blood culture and sputum culture. He also has acute kidney injury with acidosis and received 2 L fluid bolus. Denies UTI symptoms. Continue IV hydration and avoid nephrotoxins. Chest pain and shortness of breath likely secondary to pneumonia. Trend cardiac enzymes. EKG tracing reviewed by me with sinus rhythm with frequent PVC. Echocardiogram showed preserved ejection fraction. Multiple medical conditions of asthma, COPD, coronary artery disease, diabetes, hypertension, hyperlipidemia, chronic anticoagulation with Xarelto because of heart condition patient unable to recall specific diagnosis, PD, GERD, gastroparesis, chronic leg and back pain. Continue outpatient medications DVT prophylaxis with SCD and Xarelalfonzo RN to verify home meds Discussed Condition With Patient and Tolu Galo MD Jan 26, 2018 16:52
[2018-01-26] MEDS: INSULIN ASPART SUPPLEMENTAL SCALE SQ SCH ×2 (17:00→20:32)
[2018-01-26] MEDS ORDERED: POTA-163 PO (17:12)
[2018-01-26] MEDS ORDERED: ROPI3TAB PO (17:12)
[2018-01-26] MEDS ORDERED: NITR0.4S SL (17:12)
[2018-01-26] MEDS ORDERED: NITR0.2D T-DERMAL (17:12)
[2018-01-26] MEDS: SODIUM CHLOR 0.9% 1000 ML INJ 1,000 ML IV SCH (17:41)
[2018-01-26] MEDS: AZTREONAM INJ 2,000 MG in SODIUM CHLORIDE 0.9% INJ 100 ML IV SCH (17:41)
[2018-01-26] MEDS ORDERED: diphenhydrAMINE HCL 25 MG CAP PO PRN (18:00)
[2018-01-26] MEDS ORDERED: GABAPENTIN 400 MG CAP PO SCH (18:00)
[2018-01-26 18:43] LABS: BILIRUBIN, URINE NEG (NEG); BLOOD, URINE NEG (NEG); GLUCOSE,URINE 50 mg/dL (NEG); HYALINE CAST, URINE 3 /lpf (RARE); KETONE, URINE NEG (NEG); MUCUS URINE FEW /lpf (OCC); NITRITE,URINE NEG (NEG); URINE COLOR YELLOW (YELLW/STRAW); URINE LEUKOCYTE ESTERASE NEG (NEG)
[2018-01-26 19:03] LABS: TROPONIN I LESS THAN 0.02 NG/ML (0.02-0.05)
[2018-01-26] MEDS: ACETAMINOPHEN/HYDROcodone 325 MG/10 MG TAB PO PRN (19:40)
[2018-01-26] MEDS: LACTOBACILLUS ACIDOPHILUS TAB PO SCH (19:40)
[2018-01-26] MEDS: PANTOPRAZOLE SOD 40 MG DELAYED RELEASE TAB PO SCH (20:31)
[2018-01-26] MEDS: SODIUM CHLORIDE 0.9% FLUSH 10 ML FLUSH IV FLUSH SCH (20:31)
[2018-01-26] MEDS: DOCUSATE SODIUM 50 MG/SENNA 8.6 MG TAB PO SCH (20:31)
[2018-01-26] MEDS: CARBIDOPA/LEVODOPA 10 MG/100 MG TAB PO SCH (20:32)
[2018-01-26] MEDS: NYSTATIN 100,000 U/GM OINT 15 GM TUBE TOPICAL SCH (20:32)
[2018-01-26] MEDS ORDERED: NON-FORMULARY DRUG (Tiotropium-Olodaterol Inh (Stiolto Respimat Inh) 2 PUFF) INH SCH (21:00)
[2018-01-26] MEDS ORDERED: PREGABALIN 300 MG PO SCH (21:00)
[2018-01-27] VITALS (12 sets, daily range): BP systolic 90–163; BP diastolic 53–70; PULSE 68–98; RESP 16–20; TEMP 97.7–98.5; O2SAT 95–99
[2018-01-27] MEDS: AZTREONAM INJ 2,000 MG in SODIUM CHLORIDE 0.9% INJ 100 ML IV SCH ×3 (00:24→18:45)
[2018-01-27] MEDS: SODIUM CHLOR 0.9% 1000 ML INJ 1,000 ML IV SCH ×3 (00:32→20:57)
[2018-01-27] MEDS: MORPHINE SULFATE 4 MG/ML INJ IV PUSH PRN ×3 (00:33→22:19)
[2018-01-27 01:18] LABS: TROPONIN I LESS THAN 0.02 NG/ML (0.02-0.05)
[2018-01-27] MEDS: CARBIDOPA/LEVODOPA 10 MG/100 MG TAB PO SCH ×3 (04:54→21:00)
[2018-01-27] MEDS: INSULIN ASPART SUPPLEMENTAL SCALE SQ SCH ×4 (08:00→20:56)
--- NOTE | 2018-01-27 08:47 | HHI.PR ---
Subjective Remarks Feels improved today. Still some cough however not able to bring up anything. Feels congested. He is saturating well while on room air at this time. Still with chest pain however improving. Chest pain is mostly with deep inspiration. No fever or chills overnight. Objective Vitals Vital Signs Date Time Temp Pulse Resp B/P (MAP) Pulse Ox O2 Delivery O2 Flow Rate FiO2 01/27/18 04:00 93 01/27/18 04:00 Room Air 01/27/18 04:00 98.0 81 18 92/68 (76) 96 01/27/18 00:30 100/62 (75) 01/27/18 00:00 Room Air 01/27/18 00:00 98.3 68 17 90/53 (65) 95 01/27/18 00:00 79 01/26/18 20:00 Room Air 01/26/18 20:00 97 01/26/18 20:00 98.1 86 18 90/51 (64) 95 01/26/18 18:56 78 18 104/56 (72) 100 01/26/18 18:45 Room Air 01/26/18 17:57 86 19 98/53 (68) 100 Room Air 01/26/18 15:26 68 19 104/52 (69) 100 Nasal Cannula 2.00 01/26/18 13:19 67 23 96/55 (69) 100 Nasal Cannula 2.00 01/26/18 12:17 74 21 86/56 (66) 99 Nasal Cannula 2.00 01/26/18 12:03 67 19 91/44 (60) 100 Nasal Cannula 2.00 01/26/18 11:48 63 18 85/48 (60) 99 Nasal Cannula 2.00 Manual Cuff/Auscultation 01/26/18 11:44 64 96 Nasal Cannula 90/62 (71) 01/26/18 11:26 68 19 94 Room Air 67/34 (45) 01/26/18 11:04 79 16 82/58 (66) Room Air 01/26/18 11:00 97.5 87 16 I/O 01/26/18 01/26/18 01/26/18 01/27/18 01/27/18 01/27/18 07:00 15:00 23:00 07:00 15:00 23:00 Intake Total 1000 ml 300 ml 480 ml Output Total 380 ml Balance 1000 ml 300 ml 100 ml Intake Oral 480 ml IV Total 1000 ml 300 ml Output Urine Total 380 ml # Bowel Movements 2 Result Diagram: 01/26/18 1111 01/26/18 1111 Imaging Last Impressions Aorta CTA 01/26/18 1119 Signed Impressions: CONCLUSION: 1. No aortic dissection or aneurysm seen. 2. Right renal cyst. 3. Status post cholecystectomy. 4. Focal nodularity in the left lung likely infectious/inflammatory. Chest X-Ray 01/26/18 1103 Signed Impressions: CONCLUSION: Cardiomegaly with increase in pulmonary vascularity. Objective Remarks GENERAL: This is an obese, well-developed patient, in no apparent distress. He looks dehydrated CARDIOVASCULAR: Regular rate and rhythm without murmurs, gallops, or rubs. RESPIRATORY: Clear to auscultation. Breath sounds equal bilaterally. No wheezes , rales, or rhonchi. GASTROINTESTINAL: Abdomen soft, non-tender, nondistended. Tinea corporis. No guarding. MUSCULOSKELETAL: Extremities without clubbing, cyanosis, or edema. No joint tenderness, effusion, or edema noted. No calf tenderness. Negative Homans sign bilaterally. NEUROLOGICAL: Awake and alert. Cranial nerves II through XII intact. Motor and sensory grossly within normal limits. Five out of 5 muscle strength in all muscle groups. Normal speech. A/P Assessment and Plan This is a 72-year-old male emergency room complaining of acute severe lower abdominal pain radiating to his back 45 minutes prior to arrival. Was noted to be hypotensive with a pulsatile mass by EMS. Patient underwent stat aortic CTA which showed no aortic dissection but with a focal nodularity in the left lung suggestive of inflammatory or infectious etiology. He also complained of shortness of breath and left-sided chest pain like muscle spasm for 1 hour. He has been having dry cough. Abdominal pain. He ordered a CTA negative for dissection. Patient with no UTI symptoms. Reported to loose stools yesterday none today. Etiology to be determined. Obtain urinalysis. Pain management with Lortab and IV morphine Severe sepsis with left-sided pneumonia. He received imipenem. Will start aztreonam after obtaining blood culture and sputum culture. He also has acute kidney injury with acidosis and received 2 L fluid bolus. Denies UTI symptoms. Continue IV hydration and avoid nephrotoxins. Chest pain and shortness of breath likely secondary to pneumonia. Trend cardiac enzymes. EKG tracing reviewed by me with sinus rhythm with frequent PVC. Echocardiogram showed preserved ejection fraction. Multiple medical conditions of asthma, COPD, coronary artery disease, diabetes, hypertension, hyperlipidemia, chronic anticoagulation with Xarelto because of heart condition patient unable to recall specific diagnosis, PD, GERD, gastroparesis, chronic leg and back pain. Continue outpatient medications DVT prophylaxis with SCD and Xarelto RN to verify home meds Discussed Condition With Patient, nurse Echo Higgins MD Jan 27, 2018 08:47
[2018-01-27 08:56] LABS: AUTOMATED NEUTROPHIL # 8.7 TH/MM3 (1.8-7.7); BASOPHIL # 0.1 TH/MM3 (0-0.2); BASOPHIL % 0.5 % (0.0-2.0); EOSINOPHIL # 0.2 TH/MM3 (0-0.4); HEMATOCRIT 34.7 % (39.0-51.0); HEMOGLOBIN 11.2 GM/DL (13.0-17.0); LYMPH % 13.9 % (9.0-44.0); LYMPHOCYTE # 1.6 TH/MM3 (1.0-4.8); MEAN CELL VOLUME 77.5 FL (80.0-100.0); MEAN CORPUSCULAR HEMOGLOBIN 24.9 PG (27.0-34.0); MEAN CORPUSCULAR HGB CONC 32.2 % (32.0-36.0); MEAN PLATELET VOLUME 9.2 FL (7.0-11.0); MONO % 6.4 % (0.0-8.0); MONOCYTE # 0.7 TH/MM3 (0-0.9); NEUT % 77.2 % (16.0-70.0); PLATELET COUNT 253 TH/MM3 (150-450); RED BLOOD COUNT 4.48 MIL/MM3 (4.50-5.90); RED CELL DISTRIBUTION WIDTH 18.8 % (11.6-17.2); WHITE BLOOD COUNT 11.2 TH/MM3 (4.0-11.0)
[2018-01-27] MEDS: SODIUM CHLORIDE 0.9% FLUSH 10 ML FLUSH IV FLUSH SCH ×2 (09:00→20:57)
[2018-01-27] MEDS: DOCUSATE SODIUM 50 MG/SENNA 8.6 MG TAB PO SCH (09:00)
[2018-01-27] MEDS: ACETAMINOPHEN/HYDROcodone 325 MG/10 MG TAB PO PRN ×2 (09:14→18:45)
[2018-01-27] MEDS: PANTOPRAZOLE SOD 40 MG DELAYED RELEASE TAB PO SCH ×2 (09:15→20:56)
[2018-01-27] MEDS: LACTOBACILLUS ACIDOPHILUS TAB PO SCH ×3 (09:15→18:44)
[2018-01-27] MEDS: RIVAROXABAN 20 MG TAB PO SCH (09:15)
[2018-01-27] MEDS: NYSTATIN 100,000 U/GM OINT 15 GM TUBE TOPICAL SCH ×2 (09:16→20:58)
[2018-01-27 09:26] LABS: BICARBONATE 25.5 MEQ/L (21.0-32.0); CALCIUM 8.1 MG/DL (8.5-10.1); CREATININE 1.52 MG/DL (0.60-1.30)
[2018-01-27 10:15] LABS: BANDS 2 % (0-6); LYMPHOCYTES 14 % (9-44); MONOCYTES 5 % (0-8); MYELOCYTES 1 % (0-0); POLYS (SEG NEUTROPHILS) 77 % (16-70)
[2018-01-27 10:16] LABS: OVALOCYTES 1+ (NORMAL)
--- NOTE | 2018-01-27 14:42 | EKG ---
Date Performed: 01/26/2018 Time Performed: 13:18:46 PTAGE: 72 years EKG: Sinus rhythm WITH FREQUENT SUPRAVENTRICULAR PREMATURE COMPLEXES ABNORMAL RHYTHM ECG Compared to PREVIOUS TRACING , ectopic atrial or junctional rhythm no longer present. PREVIOUS TRACIN 01/26/2018 11.06 DOCTOR: Mynor Fagan Interpretating Date/Time 01/27/2018 14:41:32
--- NOTE | 2018-01-27 14:42 | EKG ---
Date Performed: 01/26/2018 Time Performed: 11:06:34 PTAGE: 72 years EKG: Ectopic atrial or junctional rhythm ABNORMAL RHYTHM ECG NO PREVIOUS TRACING DOCTOR: Mynor Fagan Interpretating Date/Time 01/27/2018 14:40:45
--- NOTE | 2018-01-27 14:43 | EKG ---
Date Performed: 01/27/2018 Time Performed: 01:12:22 PTAGE: 72 years EKG: Ectopic atrial or junctional rhythm with atrial premature beats, ventricular premature comp flako. Compared to previous tracing, normal Sinus rhythm not present. Abnormal ECG PREVIOUS TRACING : 01/26/2018 13.18.46 DOCTOR: Mynor Fagan Interpretating Date/Time 01/27/2018 14:42:38
--- NOTE | 2018-01-27 14:45 | EKG ---
Date Performed: 01/27/2018 Time Performed: 05:24:54 PTAGE: 72 years EKG: Normal Sinus rhythm with multiple atrial premature beats, similar to the prior tracing. Borderline ECG PREVIOUS TRACING : 01/27/2018 08.17.21 DOCTOR: Mynor Fagan Interpretating Date/Time 01/27/2018 14:44:37
[2018-01-28] VITALS (11 sets, daily range): BP systolic 126–160; BP diastolic 62–72; PULSE 67–89; RESP 16–20; TEMP 97.3–98.7; O2SAT 96–98
[2018-01-28] MEDS: ACETAMINOPHEN/HYDROcodone 325 MG/10 MG TAB PO PRN ×3 (00:48→16:28)
[2018-01-28] MEDS: AZTREONAM INJ 2,000 MG in SODIUM CHLORIDE 0.9% INJ 100 ML IV SCH ×3 (00:49→16:29)
[2018-01-28] MEDS: CARBIDOPA/LEVODOPA 10 MG/100 MG TAB PO SCH ×3 (06:34→20:41)
--- NOTE | 2018-01-28 07:44 | HHI.PR ---
Subjective Remarks Follow-up pneumonia improving cough. Requesting stool medicine has not had any bowel movements since admission. Improving lower abdominal pain. Objective Vitals Vital Signs Date Time Temp Pulse Resp B/P (MAP) Pulse Ox O2 Delivery O2 Flow Rate FiO2 01/28/18 04:00 98.1 80 16 135/62 (86) 97 01/28/18 04:00 73 01/28/18 00:00 98.1 71 20 126/63 (84) 98 01/27/18 23:59 73 01/27/18 20:00 Room Air 01/27/18 20:00 97.9 90 16 136/68 (90) 97 01/27/18 19:53 77 01/27/18 16:15 97.8 91 20 163/70 (101) 99 01/27/18 16:00 Room Air 01/27/18 15:55 98 01/27/18 12:06 98.5 86 18 143/63 (89) 97 01/27/18 12:00 Room Air 01/27/18 11:42 85 01/27/18 08:15 97.7 78 18 138/58 (84) 97 01/27/18 08:00 Room Air 01/27/18 07:42 97 I/O 01/27/18 01/27/18 01/27/18 01/28/18 01/28/18 01/28/18 07:00 15:00 23:00 07:00 15:00 23:00 Intake Total 480 ml 960 ml 960 ml Output Total 380 ml 650 ml 900 ml Balance 100 ml 310 ml 60 ml Intake Oral 480 ml 960 ml 960 ml Output Urine Total 380 ml 650 ml 900 ml # Voids 3 # Bowel Movements 2 Result Diagram: 01/27/18 0844 01/27/18 0844 Imaging Last Impressions Aorta CTA 01/26/18 1119 Signed Impressions: CONCLUSION: 1. No aortic dissection or aneurysm seen. 2. Right renal cyst. 3. Status post cholecystectomy. 4. Focal nodularity in the left lung likely infectious/inflammatory. Chest X-Ray 01/26/18 1103 Signed Impressions: CONCLUSION: Cardiomegaly with increase in pulmonary vascularity. Objective Remarks GENERAL: This is an obese, well-developed patient, in no apparent distress. CARDIOVASCULAR: Regular rate and rhythm without murmurs, gallops, or rubs. RESPIRATORY: Clear to auscultation. Breath sounds equal bilaterally. No wheezes , rales, or rhonchi. GASTROINTESTINAL: Abdomen soft, non-tender, nondistended. Tinea corporis. No guarding. MUSCULOSKELETAL: Extremities without clubbing, cyanosis, or edema. No joint tenderness, effusion, or edema noted. No calf tenderness. Negative Homans sign bilaterally. NEUROLOGICAL: Awake and alert. Cranial nerves II through XII intact. Motor and sensory grossly within normal limits. Five out of 5 muscle strength in all muscle groups. Normal speech. Procedures none A/P Problem List: (1) Sepsis ICD Code: A41.9 - Sepsis, unspecified organism Status: Acute (2) Pneumonia ICD Code: J18.9 - Pneumonia, unspecified organism Status: Acute Assessment and Plan This is a 72-year-old male emergency room complaining of acute severe lower abdominal pain radiating to his back 45 minutes prior to arrival. Was noted to be hypotensive with a pulsatile mass by EMS. Patient underwent stat aortic CTA which showed no aortic dissection but with a focal nodularity in the left lung suggestive of inflammatory or infectious etiology. He also complained of shortness of breath and left-sided chest pain like muscle spasm for 1 hour. He has been having dry cough. Abdominal pain. CTA negative for dissection. Patient with no UTI symptoms negative urinalysis. Reported to loose stools [employer] none since. Pain management with Lortab and IV morphine Severe sepsis with left-sided pneumonia. He received imipenem. Continue aztreonam cultures negative to date. Negative for pneumococcal and Legionella urinary antigen. Patient states the only oral antibiotic he could take his Bactrim Acute kidney injury with acidosis and received 2 L fluid bolus. Improving continue IV hydration and avoid nephrotoxins. Follow-up repeat BMP Chest pain and shortness of breath likely secondary to pneumonia. Trend cardiac enzymes. EKG tracing reviewed by me with sinus rhythm with frequent PVC. Echocardiogram showed preserved ejection fraction. Multiple medical conditions of asthma, COPD, coronary artery disease, diabetes, hypertension, hyperlipidemia, chronic anticoagulation with Xarelto because of heart condition patient unable to recall specific diagnosis, PD, GERD, gastroparesis, chronic leg and back pain. Continue outpatient medications DVT prophylaxis with SCD and Xarelto Discharge Planning Possible discharge in 1-2 days. PT no home health care recommended Tolu Galo MD Jan 28, 2018 07:44
[2018-01-28] MEDS: INSULIN ASPART SUPPLEMENTAL SCALE SQ SCH ×4 (08:00→21:00)
[2018-01-28] MEDS: SODIUM CHLOR 0.9% 1000 ML INJ 1,000 ML IV SCH (08:25)
[2018-01-28] MEDS: RIVAROXABAN 20 MG TAB PO SCH (08:27)
[2018-01-28] MEDS: PANTOPRAZOLE SOD 40 MG DELAYED RELEASE TAB PO SCH ×2 (08:27→20:40)
[2018-01-28] MEDS: LACTOBACILLUS ACIDOPHILUS TAB PO SCH ×3 (08:27→17:58)
[2018-01-28] MEDS: ASPIRIN 325 MG TAB PO SCH ×2 (08:27→09:00)
[2018-01-28] MEDS: NYSTATIN 100,000 U/GM OINT 15 GM TUBE TOPICAL SCH ×2 (08:28→20:41)
[2018-01-28] MEDS: SODIUM CHLORIDE 0.9% FLUSH 10 ML FLUSH IV FLUSH SCH ×2 (08:28→20:40)
[2018-01-28] MEDS: MORPHINE SULFATE 4 MG/ML INJ IV PUSH PRN ×2 (10:27→20:41)
[2018-01-28] MEDS: DOCUSATE SODIUM 50 MG/SENNA 8.6 MG TAB PO SCH ×2 (12:32→20:40)
[2018-01-28 14:35] LABS: BICARBONATE 26.4 MEQ/L (21.0-32.0); CALCIUM 7.8 MG/DL (8.5-10.1); MAGNESIUM 1.5 MG/DL (1.5-2.5)
[2018-01-29] VITALS: BP 130/69; PULSE 68; PULSE 70; RESP 18; TEMP 98.4; O2SAT 97
[2018-01-29] MEDS: AZTREONAM INJ 2,000 MG in SODIUM CHLORIDE 0.9% INJ 100 ML IV SCH ×2 (00:25→08:42)
[2018-01-29] MEDS: ACETAMINOPHEN/HYDROcodone 325 MG/10 MG TAB PO PRN (04:25)
[2018-01-29 04:42] VITALS: PULSE 60
[2018-01-29] MEDS: CARBIDOPA/LEVODOPA 10 MG/100 MG TAB PO SCH (05:49)
[2018-01-29 05:51] VITALS: BP 141/77; PULSE 62; RESP 18; TEMP 97.7; O2SAT 97
[2018-01-29 08:00] VITALS: BP 176/78; PULSE 56; PULSE 67; RESP 18; TEMP 98.1; O2SAT 98
[2018-01-29] MEDS: LACTOBACILLUS ACIDOPHILUS TAB PO SCH ×2 (08:41→11:52)
[2018-01-29] MEDS: DOCUSATE SODIUM 50 MG/SENNA 8.6 MG TAB PO SCH (08:41)
[2018-01-29] MEDS: ASPIRIN 325 MG TAB PO SCH (08:41)
[2018-01-29] MEDS: RIVAROXABAN 20 MG TAB PO SCH (08:41)
[2018-01-29] MEDS: PANTOPRAZOLE SOD 40 MG DELAYED RELEASE TAB PO SCH (08:41)
[2018-01-29] MEDS: NYSTATIN 100,000 U/GM OINT 15 GM TUBE TOPICAL SCH (08:42)
[2018-01-29] MEDS: SODIUM CHLORIDE 0.9% FLUSH 10 ML FLUSH IV FLUSH SCH (08:42)
[2018-01-29] MEDS: INSULIN ASPART SUPPLEMENTAL SCALE SQ SCH ×2 (08:42→11:51)
[2018-01-29] MEDS: MORPHINE SULFATE 4 MG/ML INJ IV PUSH PRN (09:12)
[2018-01-29] MEDS ORDERED: FUROSEMIDE 40 MG TAB PO SCH (10:00)
[2018-01-29] MEDS ORDERED: POTASSIUM CHLORIDE 20 MEQ CONTROLLED RELEASE TAB PO SCH (10:00)
--- NOTE | 2018-01-29 11:26 | HHI.DS ---
Discharge Summary Admission Date Jan 26, 2018 at 15:39 Discharge Date: Jan 29, 2018 Admitting Diagnosis PNA, Sepsis, Chest and Abdominal pain. (1) Sepsis ICD Code: A41.9 - Sepsis, unspecified organism Diagnosis: Principal Status: Acute (2) Pneumonia ICD Code: J18.9 - Pneumonia, unspecified organism Diagnosis: Principal Status: Acute Procedures none Brief History - From Admission This is a 72-year-old male emergency room complaining of acute severe lower abdominal pain radiating to his back 45 minutes prior to arrival. Was noted to be hypotensive with a pulsatile mass by EMS. Patient underwent stat aortic CTA which showed no aortic dissection but with a focal nodularity in the left lung suggestive of inflammatory or infectious etiology. He also complained of shortness of breath and left-sided chest pain like muscle spasm for 1 hour . He has been having dry cough. No fever or chills. Patient has severe sepsis with elevated lactic acid and received imipenem. He also has acute kidney injury with acidosis and received 2 L fluid bolus. Denies UTI symptoms. Echocardiogram showed preserved ejection fraction. All other systems reviewed negative CBC/BMP: 01/27/18 0844 01/28/18 1325 Significant Findings Laboratory Tests Test 01/26/18 18:17 01/27/18 00:11 01/27/18 08:44 01/28/18 13:25 Urine Mucus FEW /lpf (OCC) Troponin I LESS THAN 0.02 NG/ML LESS THAN 0.02 NG/ML White Blood Count 11.2 TH/MM3 (4.0-11.0) Red Blood Count 4.48 MIL/MM3 (4.50-5.90) Hemoglobin 11.2 GM/DL (13.0-17.0) Hematocrit 34.7 % (39.0-51.0) Mean Corpuscular Volume 77.5 FL (80.0-100.0) Mean Corpuscular Hemoglobin 24.9 PG (27.0-34.0) Red Cell Distribution Width 18.8 % (11.6-17.2) Neutrophils (%) (Auto) 77.2 % (16.0-70.0) Neutrophils # (Auto) 8.7 TH/MM3 (1.8-7.7) Neutrophils % (Manual) 77 % (16-70) Neutrophils # (Manual) 9.0 TH/MM3 (1.8-7.7) Myelocytes 1 % (0-0) Ovalocytes 1+ (NORMAL) Blood Urea Nitrogen 46 MG/DL (7-18) 22 MG/DL (7-18) Creatinine 1.52 MG/DL (0.60-1.30) Random Glucose 117 MG/DL (74-106) 180 MG/DL (74-106) Calcium Level 8.1 MG/DL (8.5-10.1) 7.8 MG/DL (8.5-10.1) Estimat Glomerular Filtration Rate 45 ML/MIN (>89) 74 ML/MIN (>89) Imaging Last Impressions Aorta CTA 01/26/18 1119 Signed Impressions: CONCLUSION: 1. No aortic dissection or aneurysm seen. 2. Right renal cyst. 3. Status post cholecystectomy. 4. Focal nodularity in the left lung likely infectious/inflammatory. Chest X-Ray 01/26/18 1103 Signed Impressions: CONCLUSION: Cardiomegaly with increase in pulmonary vascularity. PE at Discharge GENERAL: This is an obese, well-developed patient, in no apparent distress. CARDIOVASCULAR: Regular rate and rhythm without murmurs, gallops, or rubs. RESPIRATORY: Clear to auscultation. Breath sounds equal bilaterally. No wheezes , rales, or rhonchi. GASTROINTESTINAL: Abdomen soft, non-tender, nondistended. Tinea corporis. No guarding. MUSCULOSKELETAL: Extremities without clubbing, cyanosis, or edema. No joint tenderness, effusion, or edema noted. No calf tenderness. Negative Homans sign bilaterally. NEUROLOGICAL: Awake and alert. Cranial nerves II through XII intact. Motor and sensory grossly within normal limits. Five out of 5 muscle strength in all muscle groups. Normal speech. Hospital Course This is a 72-year-old male emergency room complaining of acute severe lower abdominal pain radiating to his back 45 minutes prior to arrival. Was noted to be hypotensive with a pulsatile mass by EMS. Patient underwent stat aortic CTA which showed no aortic dissection but with a focal nodularity in the left lung suggestive of inflammatory or infectious etiology. He also complained of shortness of breath and left-sided chest pain like muscle spasm for 1 hour. He has been having dry cough. Abdominal pain. CTA negative for dissection. Patient with no UTI symptoms negative urinalysis. Reported to loose stools [employer] none since. Resolved. He now has constipation and usually takes licorice Severe sepsis with left-sided pneumonia. He received imipenem. Stable dc aztreonam cultures negative to date. Negative for pneumococcal and Legionella urinary antigen. Patient states the only oral antibiotic he could take is Bactrim and will be given for 4 more days Acute kidney injury with acidosis and received 2 L fluid bolus. Resolved s/p IV hydration and avoid nephrotoxins. Follow-up repeat BMP next week Chest pain and shortness of breath likely secondary to pneumonia. EKG tracing reviewed by me with sinus rhythm with frequent PVC. Echocardiogram showed preserved ejection fraction. Ruled out for [place] Multiple medical conditions of asthma, COPD, coronary artery disease, diabetes, hypertension, hyperlipidemia, chronic anticoagulation with Xarelto because of heart condition patient unable to recall specific diagnosis, PD, GERD, gastroparesis, chronic leg and back pain. Continue outpatient medications DVT prophylaxis with SCD and Xarelto Pt Condition on Discharge: Stable Discharge Disposition: Discharge Home Discharge Time: > 30 minutes Discharge Instructions DIET: Follow Instructions for: Heart Healthy Diet, Diabetic Diet Activities you can perform: Regular-No Restrictions Activities to Avoid: Driving Follow up Referrals: PCP Follow-up - 1 Week New Orders: BASIC METABOLIC PROF - 02/04/18 X-RAY CHEST PA & LAT - 6 Weeks New Medications: Sulfamethoxazole-Trimethoprim (Sulfamethoxazole-Trimethoprim) 800-160 Mg Tab 1 TAB PO Q12HR for Infection, #8 TAB Continued Medications: Ascorbic Acid ER (Vitamin C ER) 500 Mg Jodee 500 MG PO DAILY for Nutritional Supplement, TAB 0 Refills Atorvastatin (Atorvastatin) 40 Mg Tab 40 MG PO HS for Cholesterol Management, #30 TAB 0 Refills Carbidopa-Levodopa (Carbidopa-Levodopa) 10-100 Mg Tab 2 TAB PO Q8HR for Parkinson Disease Mgmt, #90 TAB 0 Refills Flaxseed (Linseed) (Flax Seed Oil 1000 mg) 1,000 Mg Cap 1 CAP PO DAILY Furosemide (Lasix) 40 Mg Tab 40 MG PO BID, #60 TAB 0 Refills Gabapentin (Gabapentin) 400 Mg Cap 400 MG PO QID, #30 CAP 0 Refills Hydrocodone-Acetaminophen (Hydrocodone-Acetaminophen) 10-325 mg Tab 1 TAB PO Q6H PRN for PAIN, TAB 0 Refills Nitroglycerin Patch 24 HR (Nitro-Dur Patch 24 HR) 0.2 Mg/Hr Patch 0.2 MG T-DERMAL DAILY for Chest Pain, #30 PATCH 0 Refills Nitroglycerin SL (Nitrostat SL) 0.4 Mg Subl 0.4 MG SL DIRECTED PRN for CHEST PAIN, #100 TAB.SL 0 Refills 1 tablet under the tongue as needed for chest pain. Repeat every 5 minutes for a total of 3 DOSES or call 911 if NO relief. Nystatin Topical (Nystatin Topical) 100,000 unit/gm Oint 1 APPLIC TOPICAL Q12HR for Infection, #15 GM 0 Refills Apply to arms [place]-3/Dha/Epa/Fish Oil (Fish Oil 1,000 mg Softgel) 1,000 Mg (120 Mg-180 Mg) Capsule 1000 MG PO DAILY Omeprazole (Omeprazole) 40 Mg Cap 40 MG PO BID, #30 CAP 0 Refills Potassium Chloride ER (Potassium Chloride ER) 20 Meq Tab 20 MEQ PO BID for Electrolyte Replacement, #30 TAB 0 Refills Pregabalin (Lyrica) 300 Mg Cap 300 MG PO BID, #90 CAP 0 Refills Rivaroxaban (Xarelto) 20 Mg Tab 20 MG PO DAILY for Blood Clot Prevention, TAB 0 Refills Ropinirole (Ropinirole) 3 Mg Tab 3 MG PO HS, #30 TAB 0 Refills Tiotropium-Olodaterol Inh (Stiolto Respimat Inh) 2.5-2.5 Mcg/Act Aero 2 PUFF INH BID for COPD, #1 INHALER 0 Refills Discontinued Medications: Lisinopril-Hctz (Lisinopril-Hctz) 20-25 Mg Tab 1 TAB PO DAILY for Blood Pressure Management, #30 TAB 0 Refills Additional Information Restart Lisinopril/HCTZ when BP > 140/90 Tolu Galo MD Jan 29, 2018 11:26
[2018-01-29 12:00] VITALS: BP 129/61; PULSE 56; PULSE 57; RESP 18; TEMP 98.4; O2SAT 98
[2018-01-29] MEDS ORDERED: SULF1TAB23 PO (12:11)
[2018-01-29] MEDS ORDERED: SULFAMETHOXAZOLE-TRIMETHOPRIM DS 800-160 MG TAB PO SCH (12:15)
== END 2018-01-29 13:27 | disposition home or self-care (01) | DRG 871 ==
LOC: NEPE 10:58 → NEDA 15:39 → N04B 18:47
PROVIDERS: ADMIT Internal Medicine; ATTEND Internal Medicine
DX: A41.9 Sepsis, unspecified organism (principal); J18.9 Pneumonia, unspecified organism; N17.9 Acute kidney failure, unspecified; E87.2 Acidosis; I95.9 Hypotension, unspecified; J44.0 Chronic obstructive pulmonary disease with (acute) lower respiratory infection; E11.9 Type 2 diabetes mellitus without complications; Z68.42 Body mass index [BMI] 45.0-49.9, adult; R65.20 Severe sepsis without septic shock; E78.5 Hyperlipidemia, unspecified; I10 Essential (primary) hypertension; E66.9 Obesity, unspecified; I25.10 Atherosclerotic heart disease of native coronary artery without angina pectoris; K21.9 Gastro-esophageal reflux disease without esophagitis; G89.29 Other chronic pain; M79.606 Pain in leg, unspecified; I49.3 Ventricular premature depolarization; K59.00 Constipation, unspecified; R10.30 Lower abdominal pain, unspecified; Z79.01 Long term (current) use of anticoagulants; Z87.891 Personal history of nicotine dependence
CPT/HCPCS: 71045; 71275; 74174; 80048; 80053; 81001; 82550; 82948; 83605; 83690; 83735; 84484; 85007; 85027; 85610; 85730; 86850; 86900; 86901; 87040; 87449; 93005; 93306; 94150; 96361; 96374; J0743; J1815; J2270; J7030; Q9967